=== PATIENT | male | born 1995 | race Caucasian/White ===

== ENCOUNTER → 2017-05-03 | Outpatient (CLI) | payer BC ==
--- NOTE | 2017-05-03 20:38 | DIAGNOSTIC IMAGING REPORT ---
MRI THE LEFT FOREFOOT NO CONTRAST CLINICAL HISTORY: Stress fracture COMPARISON STUDY: No previous studies for comparison. FINDINGS: Imaging was performed in the sagittal, axial, and coronal planes. There is a tiny joint effusion at the level the first metatarsal phalangeal joint. There is a nonspecific longitudinally oriented 1 cm T2 bright lesion within the distal aspect the proximal phalanx of the fifth toe. There is no associated soft tissue mass. There is no cortical breakthrough. There is no cortical expansion. This could represent an incidental enchondroma given its location. Correlation with conventional radiographs is recommended. This is distal to the patient's reported site of pain. There are no findings to indicate a metatarsal stress fracture. IMPRESSION: 1. No evidence of metatarsal stress fracture 2. Tiny joint effusion at the level the first metatarsal phalangeal joint 3. Nonspecific longitudinally oriented 1 cm T2 bright lesion within the distal aspect of the proximal phalanx the fifth toe. Correlation with conventional radiographs is recommended. Electronically signed by: Brady Diehl M.D. 05/03/2017 8:36 PM Dictated Date/Time: 05/03/2017 8:30 PM
== END | disposition home or self-care (01) ==
LOC: C.MRI 19:24
PROVIDERS: ATTEND Family Medicine
DX: M79.672 Pain in left foot (principal)